=== PATIENT | female | born 1965 | race African-American/Black ===

== ENCOUNTER 2018-03-02 03:01 | Emergency (ER) | payer SELFPAY ==
[~2018-03-02] VITALS: Ht 170.2 cm; Wt 77.0 kg
[2018-03-02] MEDS ORDERED: IBUPROFEN 600MG TABLET PO STA (06:44)
[2018-03-02 07:50] VITALS: BP 126/71
== END 2018-03-02 09:00 | disposition home or self-care (01) ==
LOC: ER 03:01
DX: M25.561 Pain in right knee (principal); M25.531 Pain in right wrist; M54.2 Cervicalgia; M54.9 Dorsalgia, unspecified; V78.1XXA Passenger on bus injured in noncollision transport accident in nontraffic accident, initial encounter; Y93.89 Activity, other specified; Y92.411 Interstate highway as the place of occurrence of the external cause
CPT/HCPCS: 99283